=== PATIENT | female | born 1970 | race American Indian/Alaskan Native ===

== ENCOUNTER 2016-08-30 15:01 | Outpatient (CLI) | payer OTHER | END 2016-08-30 15:02 | disposition home or self-care (01) | LOC: LABHHL 15:01 | PROVIDERS: ATTEND Specialist | DX: N60.01 Solitary cyst of right breast (principal) | CPT/HCPCS: 88112 ==

== ENCOUNTER 2018-06-08 15:08 | Outpatient (CLI) | payer OTHER | END 2018-06-08 15:09 | disposition home or self-care (01) | LOC: LABHHL 15:08 | PROVIDERS: ATTEND Surgery | DX: C50.911 Malignant neoplasm of unspecified site of right female breast (principal) | CPT/HCPCS: 88305; 88341; 88342 ==

== ENCOUNTER 2018-06-19 14:14 | Outpatient (CLI) | payer OTHER ==
--- NOTE | 2018-06-19 16:13 | Mammography Report ---
Ultrasound guided biopsy of right axillary lymph node, clip placement, mammogram: Initial imaging of the breast was performed for an area of circumscribed density in the upper outer breast measuring about 3 cm. There were no mammographic findings in this size range. There was a lymph node appearing density in the 10:00 location 7 cm from the nipple measuring 1.2 cm. Imaging in the axilla demonstrated that the largest lymph node identified measures approximately 2 cm. The margins were slightly lobulated in the cortex slightly asymmetric. The patient's skin was draped and cleansed with Betadine. 1% lidocaine was used for local anesthesia. Through a small skin margaret an 18-gauge Achieve needle was used to take 2 specimens through the lymph node. Under ultrasound guidance a marker was left in place. The entrance site was covered with a waterseal bandage. An axillary view mammogram failed however to identify the lymph node or marker. The patient was given post discharge instructions. No complication encountered. It is of note that the mass in the upper outer breast has slowly progressed in size since 2016 and and was not definitely visualized in 2013. Any additional evaluation of this finding may require MRI or stereotactic biopsy.
== END 2018-06-19 14:15 | disposition home or self-care (01) ==
LOC: SPVWC 14:14
PROVIDERS: ATTEND Surgery
DX: C50.511 Malignant neoplasm of lower-outer quadrant of right female breast (principal); Z80.42 Family history of malignant neoplasm of prostate; Z80.3 Family history of malignant neoplasm of breast; Z79.899 Other long term (current) drug therapy
CPT/HCPCS: 38505; 76942; 77065; 88305; A4648; 88342

== ENCOUNTER 2018-06-26 09:08 | Outpatient (CLI) | payer OTHER ==
--- NOTE | 2018-06-28 14:28 | Ultrasound Report ---
RIGHT BREAST ULTRASOUND: 06/26/18 09:08:00 CLINICAL: Second look ultrasound to search for a mass to correspond with a suspicious right upper outer mammographic density. COMPARISON: 06/19/18 right mammogram and ultrasound images from a right lymph node biopsy. FINDINGS: Ultrasound of the outer right breast was performed and demonstrated normal fatty and fibroglandular structures with no mass or cyst to correlate with the mammographic density. IMPRESSION: Negative targeted right breast ultrasound. Recommend stereotactic biopsy of the outer right breast mass which is identified on the mammogram. BI-RADS 4--Suspicious
--- NOTE | 2018-06-28 15:56 | Magnetic Resonance Report ---
BILATERAL BREAST MRI WITHOUT AND WITH CONTRAST: 06/26/18 09:08:00 CLINICAL: Newly diagnosed right breast cancer. She 7 guided needle biopsy of a right breast mass at 5 o'clock 8 cm from the nipple on 06/08/18. Pathology revealed invasive carcinoma NOS, Gokul grade III/III, triple negative with Ki-67 95%. She also had an ultrasound guided needle biopsy of a right intramammary lymph node at 10 o'clock 7 cm from the nipple on 06/19/18. COMPARISON:06/08/18 and 03/17/18 mammograms.. TECHNIQUE: Axial 1.0-mm T1 without, axial high resolution 2.0-mm T2 and axial 1.0-mm dynamic Vibrant high-resolution postcontrast T1 fat saturation sequences on a 1.5 Lara magnet. The examination was performed with an 8 channel dedicated [place] breast coil. Post processing with CAD and subtraction was performed on an [employer] workstation. 19.0 cc of Multihance was injected without incident for the contrast portion of the exam. Consent was obtained prior to the administration of the contrast. FINDINGS: Right: Minimal background parenchymal enhancement. The unknown cancer is an oval irregular enhancing mass at 6 o'clock 15.2 cm from the nipple and 4.9 cm from the chest wall measuring 2.2 x 2.1 x 2.3 cm. It has a necrotic center and demonstrates heterogeneous enhancement with mixed kinetics, 764% peak enhancement, 39% type I persistent common 70% type II plateau and 44% type III washout waveforms. There is forward retraction of the right pectoral muscle but no invasion of the pectoral muscle or chest wall the mass. A second mass is an oval upper outer quadrant mass 14.9 cm from the nipple measuring 2.7 x 1.3 x 2.1 cm. It has a mild lobular contour and correlates with a mammographic mass. It is predominantly hypointense on T2. This mass demonstrates mild heterogeneous enhancement with mixed kinetics, 58% peak enhancement and 100% type I persistent waveform. No other mass or suspicious enhancement of the right breast. A suspicious level I right axillary lymph node measures 2.5 cm x 1.8 cm and has a maximum cortical thickness of 8 mm. There is also some cortical irregularity of this lymph node. No suspicious right internal mammary lymph nodes. Left: Minimal background parenchymal enhancement. An oval slightly irregular enhancing mass at 12 o'clock 13.5 cm from the nipple measures 6.0 x 4.7 x 2.8 mm. The demonstrates homogeneous enhancement with 100% type I persistent waveform. No other mass or suspicious enhancement. No suspicious left axillary or left internal mammary lymph nodes. IMPRESSION: 1. A 2.3 cm known right breast cancer at 6 o'clock 15 cm from the nipple and 5 cm from the chest wall. There is anterior retraction of the right pectoral muscle on the known cancer but no evidence of pectoral muscle invasion or chest wall invasion. 2. A 2.7 cm right upper outer quadrant mass 15 cm from the nipple is probably benign with morphologic features and enhancement pattern typical of a benign fibroadenoma. It would be amenable to stereotactic biopsy. 3. A suspicious right level I axillary lymph node which correlates with a suspicious lymph node identified by ultrasound. It would be amenable to ultrasound guided needle biopsy. 4. A 6 mm left breast mass at 12 o'clock 13.5 cm from the nipple with MRI features suggesting benign fibroadenoma. Recommend targeted left breast ultrasound for further evaluation of this lesion. RIGHT BI-RADS 6 -- Known Cancer LEFT BI-RADS 0 -- Needs Additional Imaging
== END 2018-06-26 09:09 | disposition home or self-care (01) ==
LOC: SPVWC 09:08
PROVIDERS: ATTEND Surgery
DX: C50.511 Malignant neoplasm of lower-outer quadrant of right female breast (principal)
CPT/HCPCS: 76642; A9577; C8908; 77049

== ENCOUNTER 2018-07-03 07:56 | Outpatient (CLI) | payer OTHER ==
--- NOTE | 2018-07-03 10:40 | Mammography Report ---
RIGHT DIGITAL DIAGNOSTIC MAMMOGRAM: 07/03/18 CLINICAL: For clip placement on same day of stereotactic biopsy. COMPARISON:06/19/18 FINDINGS: A biopsy clip is now identified in the upper outer quadrant and a clip is concordant with the previously identified mammographic mass. Margins of the mass are less sustained cause of injected lidocaine. There is also injected lidocaine in the right axilla. An oval mass with a biopsy clip at 6 o'clock approximately 17 cm from the nipple corresponds to a recently diagnosed cancer. IMPRESSION: Concordant clip placement status post stereotactic biopsy of an upper-outer quadrant mass in a patient with a known cancer at 6 o'clock. BI-RADS CATEGORY: 6 -- Known Cancer Pathology pending.
--- NOTE | 2018-07-03 11:02 | Ultrasound Report ---
ULTRASOUND GUIDED NEEDLE CORE BIOPSY OF A RIGHT AXILLARY LYMPH NODE WITH CLIP PLACEMENT : 07/03/18 07:56:00 CLINICAL: Newly diagnosed right breast cancer and a suspicious right axillary lymph node. COMPARISON :06/26/18 MRI FINDINGS: The procedure was explained to the patient and informed consent was obtained. Ultrasound demonstrated a suspicious right axillary lymph node. The skin in the axilla was prepped with Betadine and anesthetized with 1% lidocaine. Ultrasound guided needle core biopsy of the lymph node was performed through a small dermatotomy using 2% lidocaine with epinephrine for deep anesthesia and a 18-gauge Achieve biopsy device. 3 samples were obtained and placed in formalin. A clip was deployed within the lymph node. Hemostasis was achieved with minimal pressure and a sterile dressing was applied. The patient tolerated the procedure well and there were no apparent complications. She was discharged in good condition and was given instructions for wound care and followup. IMPRESSION: Uncomplicated ultrasound-guided needle core biopsy of a right axillary lymph node with clip placement.
--- NOTE | 2018-07-03 13:01 | Ultrasound Report ---
TARGETED LEFT BREAST ULTRASOUND: 07/03/18 07:56:00 CLINICAL: A 6 mm nodule at 12 o'clock 13 cm from the nipple on recent MRI. COMPARISON: 06/26/18 MRI FINDINGS: Ultrasound of the left breastdemonstrated an oval solid homogeneous hypoechoic mass at 12 o'clock 13 cm from the nipple. It measures 6 x 2 x 5 mm and correlates with the finding on MRI. In addition, a benign cyst at 11 o'clock 12 cm from the nipple measures 8 x 3 x 6 mm. IMPRESSION: 6 mm solid mass at 12 o'clock 13 cm from the nipple. Sonographic characteristics and MRI characteristics suggest benign fibroadenoma. BI-RADS 3 - - Probably Benign RECOMMENDATION: 6 month followup left breast ultrasound.
--- NOTE | 2018-07-03 15:22 | Mammography Report ---
STEREOTACTIC VACUUM ASSISTED BIOPSY WITH CLIP PLACEMENT RIGHT BREAST: 07/03/18 07:56:00 CLINICAL: Newly diagnosed right breast cancer and an additional mass in the upper outer quadrant. The mass is identified by MRI but is not identified by ultrasound. COMPARISON:06/19/18 FINDINGS: Consent for the procedure was obtained. The oval partially circumscribed mass in the upper-outer quadrant was targeted with stereotactic guidance. The skin was prepped with Betadine and anesthetized with 1% lidocaine. 2% lidocaine with epinephrine was injected for deeper anesthesia. 8 gauge Mammotome biopsy was performed from a approach through a small dermatotomy. Prefire and post-fire images demonstrated satisfactory positioning of the probe. Samples were obtained around the clock face. A specimen radiograph confirmed satisfactory sampling with removal of food service sales representatives portions of a mass. A clip was deployed at the biopsy site and deployment was confirmed with an image. The probe was removed and hemostasis was achieved with minimal pressure. A sterile dressing was applied. The patient tolerated the procedure well and there were no apparent complications. Two view mammogram demonstrated concordant position of the biopsy clip within the mass in the upper outer quadrant. IMPRESSION: Uncomplicated stereotactic biopsy with clip placement right breast.
== END 2018-07-03 07:57 | disposition home or self-care (01) ==
LOC: SPVWC 07:56
PROVIDERS: ATTEND Surgery
DX: C50.511 Malignant neoplasm of lower-outer quadrant of right female breast (principal); N63.21 Unspecified lump in the left breast, upper outer quadrant
CPT/HCPCS: 19081; 38505; 76642; 76942; 77065; 88305; A4648; 88341; 88342

== ENCOUNTER 2018-07-11 05:42 | Day surgery (SDC) | payer OTHER ==
[2018-07-11] MEDS ORDERED: LACTATED RINGERS 1,000 ML IV SCH (06:53)
[2018-07-11] MEDS ORDERED: DIPRIVAN 10 MG/ML IV ONE (07:27)
[2018-07-11] MEDS ORDERED: XYLOCAINE MPF 2% ONE (07:27)
[2018-07-11] MEDS ORDERED: SUBLIMAZE ONE (07:27)
[2018-07-11] MEDS ORDERED: NACL 0.9% IV ONE (07:30)
[2018-07-11] MEDS ORDERED: NACL 0.9% IR ONE (07:30)
[2018-07-11] MEDS ORDERED: MARCAINE 0.25% INFILTRATI ONE ×2 (07:30→07:31)
[2018-07-11] MEDS ORDERED: HEPARIN 10,000 UNITS/10 ML IV ONE (07:30)
[2018-07-11] MEDS ORDERED: HEPARIN 10,000 UNITS/10 ML ONE (07:31)
[2018-07-11] MEDS ORDERED: NACL 0.9% 100 ML ONE (07:31)
[2018-07-11] MEDS ORDERED: XYLOCAINE 1% 20 mL ONE (07:31)
--- NOTE | 2018-07-11 07:33 | Anesthesia Day of Surgery ---
Anesthesia Day of Surgery - Day of Surgery Patient H&P Reviewed: Yes Patient is NPO: Yes Beta Blockers: No Cardiac Clearance: No
--- NOTE | 2018-07-11 07:36 | Anesthesia Consultation ---
Anesthesia Consult and Med Hx - Airway Anesthetic Teeth Evaluation: Good ROM Head & Neck: Adequate Mental/Hyoid Distance: Adequate Mallampati Class: Class II Intubation Access Assessment: Probably Good - Pulmonary Exam CTA: Yes - Cardiac Exam Cardiac Exam: RRR - Pre-Operative Health Status ASA Pre-Surgery Classification: ASA2 Proposed Anesthetic Plan: General - Pulmonary Hx Smoking: No Hx Sleep Apnea: No - Cardiovascular System Hx Hypertension: Yes (2008) Hx Coronary Artery Disease: No - Central Nervous System Hx Back Pain: Yes (HERNIATED DISC (CERVICAL, LUMBAR)) - Gastrointestinal Hx Gastroesophageal Reflux Disease: No - Endocrine Hx Renal Disease: No - Other Systems Hx Cancer: Yes
[2018-07-11] MEDS ORDERED: ANCEF/STERILE WATER 2 GM/20 ML IV NR (08:00)
[2018-07-11] MEDS ORDERED: ZOFRAN ONE (08:11)
[2018-07-11] MEDS ORDERED: DECADRON ONE (08:11)
--- NOTE | 2018-07-11 08:58 | Short Stay Summary ---
Short Stay Documentation Date of service: 07/11/18 - History Principal diagnosis: right breast cancer H&P: obtained from office - Allergies and Medications Current Medications: Allergies No Known Allergies Allergy (Verified 07/06/18 11:28) Home Medications Medication Instructions Recorded Confirmed Last Taken Type Acetaminophen [Tylenol Extra 500 mg PO Q4H PRN 07/06/18 07/11/18 07/10/18 21:00 History Strength] Acyclovir [Zovirax] 400 mg PO BID PRN 07/06/18 07/11/18 06/23/18 History Ascorbic Acid [Vitamin C] 500 mg PO QDAY 07/06/18 07/11/18 07/10/18 09:00 History Cholecalciferol (Vitamin D3) 2,000 unit PO QDAY 07/06/18 07/11/18 07/07/18 09:00 History [Vitamin D3 2,000 unit] Cod Liver Oil 1 each PO DAILY 07/06/18 07/11/18 07/08/18 History Folic Acid [Folvite] 1 mg PO QDAY 07/06/18 07/11/18 07/10/18 09:00 History Lovastatin [Altoprev] 20 mg PO DAILY 07/06/18 07/11/18 07/10/18 21:00 History Multivit with Calcium,Iron,Min 1 each PO DAILY 07/06/18 07/11/18 07/09/18 09:00 History [Multiple Vitamins For Women] Triamter/Hctz 37.5-25 mg 1 tab PO QDAY 07/06/18 07/11/18 07/10/18 09:00 History [Maxzide-25] Active Medications Cefazolin Sodium (Ancef/Sterile Water 2 Gm/20 Ml) 2 gm IV PREOP NR Stop: 07/11/18 20:00 Lactated Ringer's (Lactated Ringers) 1,000 mls @ 75 mls/hr IV DIRECT PRISCA Stop: 07/11/18 23:59 Last Admin: 07/11/18 07:19 Dose: 75 mls/hr Documented by: - Brief post op/procedure progress note Date of procedure: 07/11/18 Pre-op diagnosis: right breast cancer Post-op diagnosis: same Procedure: left subclavian vein port placement with ultrasound guidance, fluoroscopy Anesthesia: GETA, local Findings: Good placement of port without PTX on post op CXR Surgeon: NICHOLE WARD Estimated blood loss: minimal Pathology: none Condition: stable - Hospital course Hospital course: Pt observed in PACU and discharged to home in stable condition when criteria met - Disposition Condition at discharge: Good Disposition: DC-01 TO HOME OR SELFCARE Short Stay Discharge Plan Activity: no restrictions Diet: regular Wound: open to air Additional Instructions: SEE PRINTED DISCHARGE INSTRUCTIONS Follow up with: JANET STARR MD [Primary Care Provider] - 7 Days NICHOLE WARD DO [Staff Physician] - 14 Days Prescriptions: Ibuprofen [Motrin 800 MG tab] 800 mg PO Q8HR PRN #30 tablet PRN Reason: Pain, Moderate (4-6)
--- NOTE | 2018-07-11 09:07 | Fluoroscopy Report ---
FLUOROSCOPY CENTRAL VENOUS DEVICE PLACEMENT HISTORY: Cernij-y-Eiun insertion, right breast cancer AP view of the chest is presented. A left subclavian Cwrhza-f-Lldn has been inserted with its distal tip terminating in the intrahepatic IVC. Consider retraction by 7-8 cm. Please correlate with the image. There is no evidence for pneumothorax. Prominent interstitial markings are identified at the left lung base which could represent an early infiltrate or chronic changes. The right lung is generally clear. Heart size is within normal limits. IMPRESSION: Left Tavgpo-x-Whth placement as described. No pneumothorax.
[2018-07-11 09:59] VITALS: BP 116/76
--- NOTE | 2018-07-12 11:18 | Operative Report ---
Operative Report Operative Report: Date of procedure: 07/11/18 Pre-op diagnosis: right breast cancer Post-op diagnosis: same Procedure: left subclavian vein port placement with ultrasound guidance, fluoroscopy Anesthesia: GETA, local Findings: Good placement of port without PTX on post op CXR Surgeon: NICHOLE WARD Estimated blood loss: minimal Pathology: none Condition: stable Procedure in detail: The patient was identified in the preoperative area, taken back to operating room, placed on operating table in supine position. After anesthesia was induced both arms were tucked and upper chest and neck were prepped and draped in usual sterile fashion. A timeout was performed. The was placed in Trendelenburg position. Local anesthetic was infiltrated into the skin at the intended puncture site. The LEFT subclavian vein was visualized on ultrasound and one attempt was made at access. The LEFT subclavian vein was accessed on the first stick. There was return of dark red, nonpulsatile blood. A wire was threaded under fluoroscopy without resistance and positioning con firmed. The needle was then removed. Using a 15 blade, an incision was made in the LEFT upper chest and dissection carried down through the skin and subcutaneous tissue using Bovie electrocautery. Hemostasis was achieved along the way. A pocket for the port was then created bluntly and with electrocautery. The catheter was flushed and tunneled from the pocket to the wire. A breakaway catheter/dilator sheath then inserted over the wire under fluoroscopy, and the wire and dilator removed. The catheter was then inserted through the breakaway catheter which was then removed. The catheter sat flush under the skin. Using continuous fluoroscopy, the catheter was pulled back until the tip was visualized in the right atrium. The catheter was then cut to size and the port attached in the usual fashion. The port was then sutured into place to the pre-pectoral fascia using 2-0 Vicryl interrupted sutures. The wound was irrigated and hemostasis ensured. The port was tested with heparinized saline and there was return of blood and it flushed easily. The port was then instilled with 3000 units of heparin. The deep dermal layer was then closed with interrupted 3-0 Vicryl stitches. The skin incisions were closed with 4-0 Monocryl subcuticular stitches and skin glue. Intraoperative chest x-ray did show good positioning of the port, without evidence of pneumothorax. At the end of the case, all sponge, instrument, sharp counts were correct 2. The patient was awoken from anesthesia and taken to PACU in stable condition.
== END 2018-07-11 10:25 | disposition home or self-care (01) ==
LOC: OR 05:42
PROVIDERS: ATTEND Surgery
DX: C50.911 Malignant neoplasm of unspecified site of right female breast (principal); E78.00 Pure hypercholesterolemia, unspecified; I10 Essential (primary) hypertension; M19.90 Unspecified osteoarthritis, unspecified site; Z80.3 Family history of malignant neoplasm of breast; Z80.8 Family history of malignant neoplasm of other organs or systems; Z98.890 Other specified postprocedural states; Z79.899 Other long term (current) drug therapy; Z85.89 Personal history of malignant neoplasm of other organs and systems
CPT/HCPCS: 36561; 77001; 81025; C1769; C1788; J1100; J1644; J2405; J2704; J3010; J7120

== ENCOUNTER 2018-08-22 09:42 | Outpatient (CLI) | payer OTHER ==
[2018-08-22 10:58] LABS: Blood Urea Nitrogen 18 mg/dL (7-17)
--- NOTE | 2018-08-22 12:30 | Cat Scan Report ---
CTA CHEST: HISTORY: chest pain. COMPARISON: none. TECHNIQUE: Helical CT in 1.25mm intervals following IV contrast. Pulmonary embolus protocol. Sagittal and coronal reformatted images. Rotational MIP images. FINDINGS: Contrast bolus is satisfactory. No pulmonary embolus is identified. Thyroid gland: Normal. Tracheobronchial tree: Normal. Esophagus: Normal. Heart: Normal. A left subclavian central line terminates in the right atrium. Pericardium: Normal. Mediastinum: Normal. Lung Huang: The lungs are clear with no evidence of nodule or infiltrate. The pulmonary veins are prominent with cephalization of flow. Mild pulmonary venous congestion is suspected. Pleural Spaces: Normal. Musculoskeletal: The bony structures are intact and unremarkable. An approximate 2.4 cm right breast mass containing a biopsy clip is identified. No suspicious thoracic adenopathy is detected. Comment: Limited images of the upper abdomen demonstrate several tiny hypodensities scattered throughout the liver. These probably represent tiny cysts or hemangiomas although metastatic lesions are difficult to exclude on CTA protocol. There are no previous CT or MRIs of the abdomen with contrast at this facility. IMPRESSION: No evidence for pulmonary embolus. Mild pulmonary venous congestion. Right breast mass. Multiple tiny liver hypodensities, see above.
== END 2018-08-22 09:43 | disposition home or self-care (01) ==
LOC: CT 09:42
PROVIDERS: ATTEND Internal Medicine Hematology
DX: N63.10 Unspecified lump in the right breast, unspecified quadrant (principal); R09.89 Other specified symptoms and signs involving the circulatory and respiratory systems; E78.00 Pure hypercholesterolemia, unspecified; I10 Essential (primary) hypertension; M19.90 Unspecified osteoarthritis, unspecified site
CPT/HCPCS: 36415; 71275; 82565; 84520; Q9967

== ENCOUNTER 2018-10-17 08:03 | Day surgery (SDC) | payer OTHER ==
[~2018-10-17 08:03] MED LIST: ANCEF/STERILE WATER 2 GM/20 ML 2 GM/20 ML SYRINGE IV NR; METHYLENE BLUE IV ONE; WATER FOR IRRIG STERILE IR ONE
[2018-10-17] MEDS ORDERED: VERSED ONE (08:54)
[2018-10-17] MEDS ORDERED: SUBLIMAZE ONE ×3 (08:55→12:02)
[2018-10-17] MEDS ORDERED: MARCAINE-EPI 0.25%-1:200,000 INFILTRATI ONE (08:56)
[2018-10-17] MEDS ORDERED: XYLOCAINE 1% 20 mL ONE (08:57)
[2018-10-17] MEDS ORDERED: LACTATED RINGERS 1,000 ML ONE (09:02)
[2018-10-17] MEDS ORDERED: DIPRIVAN 10 MG/ML IV ONE ×2 (10:30→11:57)
[2018-10-17] MEDS ORDERED: METHYLENE BLUE ONE (11:24)
[2018-10-17] MEDS ORDERED: METHYLENE BLUE IV ONE (11:34)
[2018-10-17] MEDS ORDERED: WATER FOR IRRIG STERILE IR ONE (11:34)
[2018-10-17] MEDS ORDERED: NEO SYNEPHRINE/NS Syringe(OR USE) IV ONE (12:29)
[2018-10-17] MEDS ORDERED: BREVIBLOC IV ONE (12:29)
[2018-10-17] MEDS ORDERED: ZOFRAN ONE (12:29)
[2018-10-17] MEDS ORDERED: XYLOCAINE MPF 2% ONE (12:29)
[2018-10-17] MEDS ORDERED: DECADRON ONE (12:29)
[2018-10-17] MEDS ORDERED: DILAUDID ONE (14:12)
[2018-10-17] MEDS ORDERED: ZOFRAN IV PRN (14:22)
[2018-10-17] MEDS ORDERED: DILAUDID IV PRN (14:22)
--- NOTE | 2018-10-17 14:22 | Anesthesia Consultation ---
Anesthesia Consult and Med Hx - Airway Anesthetic Teeth Evaluation: Good ROM Head & Neck: Adequate Mental/Hyoid Distance: Adequate Mallampati Class: Class II Intubation Access Assessment: Good - Pulmonary Exam CTA: Yes - Cardiac Exam Cardiac Exam: RRR - Pre-Operative Health Status ASA Pre-Surgery Classification: ASA2 Proposed Anesthetic Plan: General Nerve Block: PEC Block - Pulmonary Hx Smoking: No Hx Sleep Apnea: No - Cardiovascular System Hx Hypertension: Yes (2008) Hx Coronary Artery Disease: No - Central Nervous System Hx Back Pain: Yes (HERNIATED DISC (CERVICAL, LUMBAR)) - Gastrointestinal Hx Gastroesophageal Reflux Disease: No - Endocrine Hx Renal Disease: No - Other Systems Hx Cancer: Yes Hx Obesity: Yes
--- NOTE | 2018-10-17 14:22 | Anesthesia Day of Surgery ---
Anesthesia Day of Surgery - Day of Surgery Patient Examined: Yes Patient H&P Reviewed: Yes Patient is NPO: Yes
--- NOTE | 2018-10-17 15:09 | Short Stay Summary ---
Short Stay Documentation Date of service: 10/17/18 - History H&P: obtained from office - Allergies and Medications Current Medications: Allergies No Known Allergies Allergy (Verified 10/13/18 14:24) Home Medications Medication Instructions Recorded Confirmed Last Taken Type RX: Acetaminophen [Tylenol Extra 500 mg PO Q4H PRN 07/06/18 10/13/18 10/16/18 History Strength] RX: Acyclovir [Zovirax] 400 mg PO BID PRN 07/06/18 10/13/18 06/23/18 History RX: Ascorbic Acid [Vitamin C] 500 mg PO QDAY 07/06/18 10/13/18 10/16/18 History RX: Cholecalciferol (Vitamin D3) 2,000 unit PO QDAY 07/06/18 10/13/18 10/16/18 History [Vitamin D3 2,000 UNIT CAP] RX: Cod Liver Oil 1 each PO DAILY 07/06/18 10/13/18 10/16/18 History RX: Folic Acid [Folvite] 1 mg PO QDAY 07/06/18 10/13/18 10/16/18 History RX: Lovastatin [Altoprev] 20 mg PO DAILY 07/06/18 10/13/18 10/16/18 History RX: Multivit with Calcium,Iron,Min 1 each PO DAILY 07/06/18 10/13/18 10/16/18 History [Multiple Vitamins For Women] RX: Triamter/Hctz 37.5-25 mg 1 tab PO QDAY 07/06/18 10/13/18 10/16/18 History [Maxzide-25] RX: Ibuprofen [Motrin 800 MG tab] 800 mg PO Q8HR PRN #30 tablet 07/11/18 10/17/18 3 Days Ago Rx ~10/14/18 Acyclovir [Zovirax Tab] 400 mg PO DAILY 10/13/18 10/13/18 10/16/18 History HYDROcodone/APAP 5-325 [[place] 1 each PO Q6HR PRN #30 tablet 10/17/18 Unknown Rx 5/325] Active Medications Hydromorphone HCl (Dilaudid) 0.5 mg IV Q10MIN PRN PRN Reason: Pain , Severe (7-10) Cefazolin Sodium (Ancef/Sterile Water 2 Gm/20 Ml) 2 gm in 20 mls @ 80 mls/hr IV PREOP NR; Protocol Stop: 10/17/18 23:59 Ondansetron HCl (Zofran) 4 mg IV ONCE PRN PRN Reason: Nausea And Vomiting - Brief post op/procedure progress note Date of procedure: 10/17/18 Pre-op diagnosis: Right breast cancer of the lower inner quadrant Post-op diagnosis: same Procedure: Right partial mastectomy and SLNB Anesthesia: GETA Findings: Right breast mass and clip present; x2 SLNs Surgeon: LISA BUCKLEY Estimated blood loss: minimal Pathology: list (right breast mass; x2 SLNs) Specimen disposition: to lab Condition: stable - Disposition Condition at discharge: Good Disposition: DC- TO HOME OR SELFCARE Short Stay Discharge Plan Activity: other (no heavy lifting) Diet: regular Wound: keep clean and dry (may shower in 48 hours; no baths, pools or lakes; do not rub or scrub incision; wear breast binder) Follow up with: JANET STARR MD [Primary Care Provider] - 7 Days LISA BUCKLEY MD [Staff Physician] - 7 Days Prescriptions: HYDROcodone/APAP 5-325 [[place] 5/325] 1 each PO Q6HR PRN #30 tablet PRN Reason: Pain
--- NOTE | 2018-10-17 15:10 | Mammography Report ---
SPECIMEN RADIOGRAPH RIGHT BREAST: 10/17/18 CLINICAL: Surgical excision of a known cancer at 6 o'clock. FINDINGS: The targeted mass with a localizer clip is identified within the specimen. IMPRESSION: Excision of the targeted lesion.
--- NOTE | 2018-10-17 15:16 | Operative Report ---
Operative Report Operative Report: Operative Report: October 17, 2018 Preoperative diagnosis: Right breast cancer of the lower inner quadrant Postoperative diagnosis: Same Procedure: Right partial mastectomy of the lower inner quadrant and SLNB Surgeon: Lissy Hopkins MD Anesthesia: General Findings: Right breast mass and clip present within radiograph specimen; x2 SLNs Complications: None Drains: None EBL: Minimal Disposition: PACU in good condition Indications for operative procedure: This is a 48 year old lady with newly diagnosed right breast cancer of the lower inner quadrant, Stage II [id number] triple negative. She recently completed neoadjuvant chemotherapy. Recommendations are to proceed with breast conservation. She understands the role of adjuvant radiation therapy. She wished to proceed with the above procedure. Procedure in detail: Anesthesia placed right pectoral block. Patient was then taken to the operating room. Gen. anesthesia was administered. The right nipple was injected with radioisotope and 1 cc of methylene blue dye with 1 cc of saline. Right breast and axilla were prepped and draped in the normal sterile operative fashion. Right breast mass was located at the 5:00 position 8 cm from the nipple-palpable and ultrasound used to sudhakar area of incision with margins. Timeout was performed. Gamma probe was inserted into the axilla. The area of hot spot was identified. A right axillary incision was made with a 15 blade knife with dissection taken down to the subcutaneous tissues. The axillary fascia was opened with the Bovie cautery. 2 SLNs were identified with blue dye present. All remaining counts were less than 10% of the highest count. Lymph nodes were sent to pathology for permanent processing. Hemostasis was obtained in the right axillary cavity. Axillary cavity was appropriately irrigated and suctioned. Hemostasis was noted. Axillary fascia was approximated and closed using interrupted 3-0 Vicryl and the skin brought together and closed using a running 4-0 Monocryl followed by skin affix. Attention was then taken towards the right breast. A breast incision was made with a 15 blade knife and dissection taken down to subcutaneous tissues. First began raising of the superior flap with dissection take down to the pectoralis muscle, followed by raising of the inferior flap, medial flap and lateral flap with all flaps taken down to the pectoralis muscle. The breast area of concern was appropriately removed posteriorly from the pectoralis muscle with the aid of the Bovie cautery. Specimen was marked and then sent to pathology and radiology; radiograph specimen with mass and clip present. Breast cavity was irrigated and hemostasis was obtained. The posterior deep breast tissues were approximated and closed using interrupted 3-0 Vicryl. The subcutaneous tissues were approximated and closed using interrupted 3-0 Vicryl followed by closing of the skin with a running 4-0 Monocryl and skin affix. The patient tolerated surgery very well and she was awaken from anesthesia without any complication and transported to PACU in good condition.
[2018-10-17 19:34] VITALS: BP 132/92
== END 2018-10-17 08:04 | disposition home or self-care (01) ==
LOC: OR 08:03
PROVIDERS: ATTEND Surgery
DX: C50.311 Malignant neoplasm of lower-inner quadrant of right female breast (principal); E78.00 Pure hypercholesterolemia, unspecified; I10 Essential (primary) hypertension; E66.01 Morbid (severe) obesity due to excess calories; M19.90 Unspecified osteoarthritis, unspecified site; Z79.899 Other long term (current) drug therapy; Z68.37 Body mass index [BMI] 37.0-37.9, adult; Z80.3 Family history of malignant neoplasm of breast; Z80.42 Family history of malignant neoplasm of prostate; Z98.890 Other specified postprocedural states; Z80.8 Family history of malignant neoplasm of other organs or systems
CPT/HCPCS: 19301; 38525; 38792; 64450; 76098; 78800; 81025; 88305; 88307; 88341; 88342; A9541; J0690; J1100; J1170; J2250; J2370; J2405; J2704; J3010; J7120; Q9968; 88333

== ENCOUNTER 2020-04-28 07:59 | Outpatient (CLI) | payer OTHER ==
--- NOTE | 2020-04-28 08:48 | Mammography Report ---
DIGITAL DIAGNOSTIC MAMMOGRAM WITH CAD , 04/28/2020 CLINICAL INFORMATION / INDICATION: The patient has a personal history of right breast cancer treated with lumpectomy. She reports no new breast symptoms. TECHNIQUE: Digital bilateral mammographic imaging was performed. This examination was interpreted with the benefit of Computer-aided Detection analysis. COMPARISON: 04/05/2019, 10/22/2019 FINDINGS: Breast Density: The breasts are heterogeneously dense, which may obscure small masses. No dominant mass, suspicious calcifications or architectural distortion in either breast. Postsurgical changes are again noted in the right breast. IMPRESSION: No mammographic evidence of malignancy. Follow up recommendation: Routine yearly BI-RADS Category 2: Benign. A "normal" or negative report should not discourage follow up or biopsy of a clinically significant f inding. A written summary of these findings will be mailed to the patient. The patient will be entered into a mammography reporting system which will generate a reminder letter for the patient's next appointmen t at the appropriate interval. According to the [employer], yearly mammograms are recommended starting at age 40 and continuing as long as a woman is in good health. Breast MRI is recommended for women with an artem roximately 20-25% or greater lifetime risk of breast cancer, including women with a strong family his tory of breast or ovarian cancer and women who have been treated for Hodgkin's disease. Signer Name: Gillian Schwab MD Signed: 04/28/2020 8:43 AM Workstation Name: [employer]
== END 2020-04-28 08:00 | disposition home or self-care (01) ==
LOC: SPVWC 07:59
PROVIDERS: ATTEND Surgery
DX: C50.911 Malignant neoplasm of unspecified site of right female breast (principal); Z85.3 Personal history of malignant neoplasm of breast
CPT/HCPCS: 77066

== ENCOUNTER 2020-12-12 08:10 | Outpatient (CLI) | payer OTHER ==
--- NOTE | 2020-12-12 12:03 | Mammography Report ---
DIGITAL DIAGNOSTIC MAMMOGRAM WITH CAD, WITH TOMOSYNTHESIS -- 12/12/2020 INDICATION: The patient has a personal history of right breast cancer treated with lumpectomy. This i s a short-term follow-up evaluation. The patient reports no new breast symptoms. TECHNIQUE: Digital right 2D and 3D mammographic imaging was performed. This examination was interpreted with the benefit of Computer-aided Detection analysis. COMPARISON: 04/28/2020, 10/22/2019, 04/05/2019 FINDINGS: Breast Density: The breasts are heterogeneously dense, which may obscure small masses. There is no evidence of dominant mass, suspicious calcifications or architectural distortion in the r ight breast. Stable postlumpectomy findings are noted in the posterior lateral right breast. There is a biopsy marker in the upper outer quadrant. IMPRESSION: Follow up recommendation: Routine yearly BI-RADS Category 2: Benign. Stable postsurgical appearance of the right breast. A "normal" or negative report should not discourage follow up or biopsy of a clinically significant f inding. A written summary of these findings will be mailed to the patient. The patient will be entered into a mammography reporting system which will generate a reminder letter for the patient's next appointmen t at the appropriate interval. According to the [employer], yearly mammograms are recommended starting at age 40 and continuing as long as a woman is in good health. Breast MRI is recommended for women with an artem roximately 20-25% or greater lifetime risk of breast cancer, including women with a strong family his tory of breast or ovarian cancer and women who have been treated for Hodgkin's disease. Signer Name: Gillian Schwab MD Signed: 12/12/2020 11:58 AM Workstation Name: [email or web address]
== END 2020-12-12 08:11 | disposition home or self-care (01) ==
LOC: SPVWC 08:10
PROVIDERS: ATTEND Surgery
DX: R92.8 Other abnormal and inconclusive findings on diagnostic imaging of breast (principal); Z85.3 Personal history of malignant neoplasm of breast
CPT/HCPCS: 77065; G0279